=== PATIENT | male | born 1950 | race Caucasian/White ===

== ENCOUNTER → 2020-01-09 12:52 | Outpatient (BNVA) | payer MEDICARE, SELFPAY | PROVIDERS: Visit Provider Urology | DX: N40.1 Benign prostatic hyperplasia with lower urinary tract symptoms (principal); N13.8 Other obstructive and reflux uropathy; R39.11 Hesitancy of micturition; R35.1 Nocturia | CPT/HCPCS: 99202 ==

== ENCOUNTER → 2020-02-10 15:56 | Outpatient (BNVA) | payer MEDICARE, SELFPAY | PROVIDERS: Visit Provider Urology | DX: Z76.89 Persons encountering health services in other specified circumstances (principal) | CPT/HCPCS: Q3014 ==

== ENCOUNTER → 2021-02-25 13:05 | Outpatient (BNVA) | payer MEDICARE, SELFPAY | PROVIDERS: PCP Internal Medicine; Visit Provider Urology | DX: N40.1 Benign prostatic hyperplasia with lower urinary tract symptoms (principal); N13.8 Other obstructive and reflux uropathy; R39.11 Hesitancy of micturition; R35.1 Nocturia | CPT/HCPCS: 51798; 99212 ==

== ENCOUNTER → 2021-11-02 08:26 | Outpatient (BNVA) | payer MEDICARE, SELFPAY | PROVIDERS: PCP Internal Medicine; Visit Provider Urology | DX: N40.1 Benign prostatic hyperplasia with lower urinary tract symptoms (principal); R39.11 Hesitancy of micturition; R35.1 Nocturia; R39.12 Poor urinary stream; Z79.899 Other long term (current) drug therapy | CPT/HCPCS: Q3014 ==

== ENCOUNTER → 2022-07-14 14:21 | Outpatient (BNVA) | payer MEDICARE, SELFPAY | PROVIDERS: PCP Internal Medicine; Visit Provider Urology | DX: N40.1 Benign prostatic hyperplasia with lower urinary tract symptoms (principal); R39.11 Hesitancy of micturition; R35.1 Nocturia | CPT/HCPCS: 51798; 99212 ==

== ENCOUNTER 2023-01-19 14:22 | Outpatient (AMB) | payer MEDICARE, SELFPAY ==
--- NOTE | 2023-01-19 14:31 | A.OFFVIS_ITS ---
Intake Intake Visit Reasons: follow up/PVR Intake Note: Patient is Present for Follow Up Urology Medication: Finasteride, Tamsulosin Antibiotic Allergies: None Blood Thinners: None PVR: 0 Allergies No Known Allergies Allergy (Verified 01/19/23 14:32) HPI HPI Comments History of Present Illness Details Mansoor is a pleasant male. He is a patient of Dr. Marcum. He is seen for the following urologic conditions - lower urinary tract symptoms Six month follow-up bladder emptying Here for bladder emptying check PVR 0 cc Continue medications terazosin 10 mg 6 month follow-up to confirm improvement Lower urinary tract symptoms Current visit is for - further symptom evaluation of lower ur inary tract symptoms predominate obstructive symptoms. Current treatment includes - terazosin 10 mg, finasteride Prior treatments include - Prostate Symptom Score Initial Severe (20+) Bother 3 PSA 01/30 4.7 08/31 2.1 Symptoms include - incomplete emptying, weak stream, stra ining, nocturia (>2) - and are progressing Imaging - 02/28 bladder ultrasound 25 g prostate , 300 cc residual after 900 cc initial Cystoscopy - 01/01 open bladder neck, component of neurogenic bladder Associated conditions Testing at next visit will include - PVR Treatment plan - voiding surveillance PFSH Social History Alcohol intake: current Alcohol intake frequency: holidays/special occasions only Patient Tobacco Use Status: Former Tobacco user Office Procedures Post Void Residual Post Residual Void Post Void Residual (PVR): 0 60916-Hekg Void Residual by ultrasound Assessment & Plan Assessment & Plan (1) Nocturia more than twice per night: Code(s): R35.1 - Nocturia (2) BPH w urinary obs/LUTS: Code(s): N40.1 - Benign prostatic hyperplasia with lower urinary tract symptoms; N13.8 - Other obstructive and reflux uropathy Plan Six month follow-up Orders: Orders AMB Urinalysis Automated 01/19/23 Z13.9 - Encounter for screening, unspecified AMB Post Void Residual by ultrasound 01/19/23 N40.1 - Benign prostatic hyperplasia with lower urinary tract symptoms, N13.8 - Other obstructive and reflux uropathy Medications: New terazosin 10 mg PO BEDTIME 90 caps 1RF 90 days N40.1 - Benign prostatic hyperplasia with lower urinary tract symptoms, N13.8 - Other obstructive and reflux uropathy, N40.0 - Benign prostatic hyperplasia without lower urinary tract symptoms Discontinued tamsulosin Discontinued Reason: Patient Completed Course 0.4 mg PO BEDTIME 90 days 90 caps 3RF N13.8 - Other obstructive and reflux uropathy, N40.1 - Benign prostatic hyperplasia with lower urinary tract symptoms Patient Instructions: Imaging studies, laboratory and physical exam results were discussed and reviewed in detail. No major barriers to patient understanding were identified. An opportunity to ask questions regarding the treatment plan was provided. All questions were answered. The patient expressed understanding and agreement with the above treatment plan. The patient is aware they should contact our office by phone for worsening of their current condition or the appearance of new urologic symptoms. Compliance is encouraged with any medications and followup testing that is ordered. It is a privilege to participate in the urologic care of your patient. If you have any questions or concerns regarding treatment for the above conditions, or other urologic issues, please do not hesitate to contact me. The office telephone contact is [phone]. This note is constructed using voice recognition software. While every effort has been made to ensure accuracy real estate legal secretary errors may have been included. Yours sincerely, Dr Joon Fuller MD, DEBBIE [facility] - Urology Providers of Expert, Compassionate Care for the Genitourinary System Coding Level of Care Code Est Pt Level 3 (76195) Diagnoses Nocturia more than twice per night R35.1 BPH w urinary obs/LUTS N40.1; N13.8 CPT Codes Post Residual Void - PVR CPT Code: 35549-Ldlh Void Residual by ultrasound ([id number])
== END 2023-01-19 14:52 | disposition home or self-care (01) ==
PROVIDERS: Visit Provider Urology
DX: N40.1 Benign prostatic hyperplasia with lower urinary tract symptoms (principal); R35.1 Nocturia; N13.8 Other obstructive and reflux uropathy
CPT/HCPCS: 99213

== ENCOUNTER → 2023-01-19 14:22 | Outpatient (BNVA) | payer MEDICARE, SELFPAY | PROVIDERS: Visit Provider Urology | DX: N40.1 Benign prostatic hyperplasia with lower urinary tract symptoms (principal); R35.1 Nocturia; N13.8 Other obstructive and reflux uropathy | CPT/HCPCS: 51798; 99212 ==

== ENCOUNTER 2023-07-20 11:33 | Outpatient (AMB) | payer MEDICARE, SELFPAY ==
--- NOTE | 2023-07-20 11:47 | A.OFFVIS_ITS ---
Intake Visit Reasons: 6m/PVR Intake Note: Patient is Present for PVR/ Urology Med: Terazosin, Finasteride Antibiotic Allergy:none Blood Thinner: None Last PVR: 0 Todays PVR: 312 Allergies No Known Allergies Allergy (Verified 07/20/23 11:47) HPI Comments Details: Mansoor is a pleasant male. He is a patient of Dr. Marcum. He is seen for the following urologic conditions - lower urinary tract symptoms Six month follow-up bladder emptying Here for bladder emptying check High PVR Continue medications terazosin 10 mg with finasteride 6 month follow-up to confirm improvement Urgency has decreased significantly. Only waking once or twice at night. This is down from every 2 hours at initial presentation Lower urinary tract symptoms Current visit is for - further symptom evaluation of lower urinary tract symptoms predominate obstructive symptoms. Current treatment includes - terazosin 10 mg, finasteride Prior treatments include - Prostate Symptom Score Initial Severe (20+) Bother 3 PSA 01/30 4.7 08/31 2.1 Symptoms include - incomplete emptying, weak stream, straining, nocturia (>2) - and are progressing Imaging - 02/28 bladder ultrasound 25 g prostate, 300 cc residual after 900 cc initial Cystoscopy - 01/01 open bladder neck, component of neurogenic bladder Associated conditions Testing at next visit will include - PVR Treatment plan - voiding surveillance PFS Social History Alcohol intake: current Alcohol intake frequency: holidays/special occasions only Patient Tobacco Use Status: Former Tobacco user Review of Systems Const Denies chills and Denies fever(s) Card Reports no additional complaints and Denies syncope Resp Denies cough GI Denies abdominal pain and Denies heartburn Reports as per HPI and Denies change in libido Neuro Denies syncope Psych Denies change in libido Endo Denies change in libido Physical Exam Const General: cooperative, healthy appearing, comfortable and no acute distress Orientation/consciousness: patient oriented x3 HEENT Face and sinus: Yes normal facial exam Mouth: moist mucous membranes Neck Neck: Yes normal visual inspection, Yes full ROM and Yes trachea midline Chest Chest palpation & inspection: normal inspection of the chest Resp Effort & Inspection: normal respiratory effort, able to speak in complete sentences and no respiratory distress GI Inspection: Yes normal to inspection Back/Spine/Pelvis Cervical Spine: normal cervical lordosis Thoracic/Lumbar Spine: thoracic and lumbar spine normal to inspection Skin General skin exam: no rashes or lesions noted Neuro General: patient oriented x3, gait normal, tone normal and moves all extremities Extrem General: Yes normal to inspection and Yes capillary refill normal Office Procedures Post Void Residual Post Residual Void Post Void Residual (PVR): 312 33718-Gnpy Void Residual by ultrasound Assessment & Plan Assessment & Plan (1) Nocturia more than twice per night: Code(s): R35.1 - Nocturia Category: Medical (2) BPH w urinary obs/LUTS: Code(s): N40.1 - Benign prostatic hyperplasia with lower urinary tract symptoms; N13.8 - Other obstructive and reflux uropathy Category: Medical Plan Six-month follow-up Orders: Orders AMB Post Void Residual by ultrasound Today N40.1 - Benign prostatic hyperplasia with lower urinary tract symptoms, R33.9 - Retention of urine, unspecified Prostate Specific Antigen 6 Months N13.8 - Other obstructive and reflux uropathy, N40.1 - Benign prostatic hyperplasia with lower urinary tract symptoms Patient Instructions: Imaging studies, laboratory and physical exam results were discussed and reviewed in detail. No major barriers to patient understanding were identified. An opportunity to ask questions regarding the treatment plan was provided. All questions were answered. The patient expressed understanding and agreement with the above treatment plan. The patient is aware they should contact our office by phone for worsening of their current condition or the appearance of new urologic symptoms. Compliance is encouraged with any medications and followup testing that is ordered. It is a privilege to participate in the urologic care of your patient. If you have any questions or concerns regarding treatment for the above conditions, or other urologic issues, please do not hesitate to contact me. The office telephone contact is [phone]. This note is constructed using voice recognition software. While every effort has been made to ensure accuracy shipping clerk packing errors may have been included. Yours sincerely, Dr Joon Fuller MD, DEBBIE [facility] - Urology Providers of Expert, Compassionate Care for the Genitourinary System Coding Level of Care Code Est Pt Level 3 (19851) Diagnoses Nocturia more than twice per night R35.1 BPH w urinary obs/LUTS N40.1; N13.8 CPT Codes Post Residual Void - PVR CPT Code: 15190-Bynv Void Residual by ultrasound ([id number])
== END 2023-07-20 12:15 | disposition home or self-care (01) ==
PROVIDERS: PCP Internal Medicine; Visit Provider Urology
DX: N40.1 Benign prostatic hyperplasia with lower urinary tract symptoms (principal); R35.1 Nocturia; N13.8 Other obstructive and reflux uropathy
CPT/HCPCS: 99213

== ENCOUNTER → 2023-07-20 11:33 | Outpatient (BNVA) | payer MEDICARE, SELFPAY | PROVIDERS: PCP Internal Medicine; Visit Provider Urology | DX: N40.1 Benign prostatic hyperplasia with lower urinary tract symptoms (principal); N13.8 Other obstructive and reflux uropathy; R35.1 Nocturia; R33.8 Other retention of urine | CPT/HCPCS: 51798; 99212 ==

== ENCOUNTER 2024-02-22 10:06 | Outpatient (AMB) | payer MEDICARE, SELFPAY ==
--- NOTE | 2024-02-22 10:20 | MHC.OFFVIS ---
Intake Visit Reasons: 1Y PVR/PSA Free/total(psa?) Intake Note: Patient is Present for PVR/PSA Urology Med: Terazosin, Finasteride,NAPROXEN Antibiotic Allergy:none Blood Thinner: None Last PVR: 312ML'S Todays PVR: 0ML'S Tobacco Feeder Catcher Required: No Allergies No Known Allergies Allergy (Verified 02/22/24 10:21) HPI Comments Details: Mansoor is a pleasant male. He is a patient of Dr. Marcum. He is seen for the following urologic conditions - lower urinary tract symptoms Six month follow-up bladder emptying PVR resolved with medications Continue medications terazosin 10 mg with finasteride Move to yearly visit Urgency has decreased significantly. Only waking once or twice at night. This is down from every 2 hours at initial presentation Lower urinary tract symptoms Current visit is for - further symptom evaluation of lower urinary tract symptoms predominate obstructive symptoms. Current treatment includes - terazosin 10 mg, finasteride Prior treatments include - Prostate Symptom Score Initial Severe (20+) Bother 3 PSA 01/30 4.7 08/31 2.1 Symptoms include - incomplete emptying, weak stream, straining, nocturia (>2) - and are progressing Imaging - 02/28 bladder ultrasound 25 g prostate, 300 cc residual after 900 cc initial Cystoscopy - 01/01 open bladder neck, component of neurogenic bladder Associated conditions Testing at next visit will include - PVR Treatment plan - voiding surveillance [facility] Social History Alcohol intake: current Alcohol intake frequency: holidays/special occasions only Patient Tobacco Use Status: Former Tobacco user Review of Systems Const Denies chills and Denies fever(s) Card Reports no additional complaints and Denies syncope Resp Denies cough GI Denies abdominal pain and Denies heartburn Reports as per HPI and Denies change in libido Neuro Denies syncope Psych Denies change in libido Endo Denies change in libido Physical Exam Const General: cooperative, healthy appearing, comfortable and no acute distress Orientation/consciousness: patient oriented x3 HEENT Face and sinus: Yes normal facial exam Mouth: moist mucous membranes Neck Neck: Yes normal visual inspection, Yes full ROM and Yes trachea midline Chest Chest palpation & inspection: normal inspection of the chest Resp Effort & Inspection: normal respiratory effort, able to speak in complete sentences and no respiratory distress GI Inspection: Yes normal to inspection Back/Spine/Pelvis Cervical Spine: normal cervical lordosis Thoracic/Lumbar Spine: thoracic and lumbar spine normal to inspection Skin General skin exam: no rashes or lesions noted Neuro General: patient oriented x3, gait normal, tone normal and moves all extremities Extrem General: Yes normal to inspection and Yes capillary refill normal Office Procedures Post Void Residual Post Residual Void Post Void Residual (PVR): 0 38962-Lfcd Void Residual by ultrasound Results AMB Urinalysis, Automated UA Leukoctes 0 Colin/uL Last Edit by ANTELMO Rodríguez on 02/22/24 10:43 UA Nitrite Negative Last Edit by Susana Morales CCM on 02/22/24 10:43 UA Urobilinogen 0.2 mg/dL Last Edit by ANTELMO Rodríguez on 02/22/24 10:43 UA Protein 15 mg/dL Last Edit by Susana Morales CCM on 02/22/24 10:43 UA pH 6.0 Last Edit by Susana Morales [facility] on 02/22/24 10:43 UA Blood 0 Martinez/uL Last Edit by Susana Morales [facility] on 02/22/24 10:43 UA Specific [place] 1.030 Last Edit by Susana Morales CCM on 02/22/24 10:43 UA Ketone Negative Last Edit by Susana Morales CCM on 02/22/24 10:43 UA Bilirubin 0 mg/dL Last Edit by Susana Morales CCM on 02/22/24 10:43 UA Glucose 0 mg/dL Last Edit by Susana Morales [facility] on 02/22/24 10:43 Results Reviewed Results Reviewed: Laboratory Last Values Urine pH (Auto) 6.0 02/22/24 10:43 Specific [place] (Auto) 1.030 02/22/24 10:43 Urine Protein (Auto) 15 mg/dL 02/22/24 10:43 Glucose (UA)(Auto) 0 mg/dL 02/22/24 10:43 Urine Ketones (Auto) Negative 02/22/24 10:43 Urine Blood (Auto) 0 Martinez/uL 02/22/24 10:43 Urine Nitrite (Auto) Negative 02/22/24 10:43 Urine Bilirubin (Auto) 0 mg/dL 02/22/24 10:43 Urine Urobilinogen (Auto) 0.2 mg/dL 02/22/24 10:43 Leukocyte Esterase (Auto) 0 Colin/uL 02/22/24 10:43 Assessment & Plan Assessment & Plan (1) BPH w urinary obs/LUTS: Code(s): N40.1 - Benign prostatic hyperplasia with lower urinary tract symptoms; N13.8 - Other obstructive and reflux uropathy Category: Medical (2) Nocturia more than twice per night: Code(s): R35.1 - Nocturia Category: Medical (3) Incomplete emptying of bladder due to benign prostatic hyperplasia: Code(s): N40.1 - Benign prostatic hyperplasia with lower urinary tract symptoms; R33.9 - Retention of urine, unspecified Category: Medical Plan Twelve month follow-up Orders: Orders Prostate Specific Antigen 364 Days N40.1 - Benign prostatic hyperplasia with lower urinary tract symptoms, R33.9 - Retention of urine, unspecified AMB Urinalysis Automated Today Z13.9 - Encounter for screening, unspecified Medications: Refilled terazosin 10 mg PO BEDTIME 90 caps 3RF 90 days N13.8 - Other obstructive and reflux uropathy, N40.0 - Benign prostatic hyperplasia without lower urinary tract symptoms, N40.1 - Benign prostatic hyperplasia with lower urinary tract symptoms finasteride 5 mg PO DAILY 90 tabs 3RF 90 days N40.1 - Benign prostatic hyperplasia with lower urinary tract symptoms, R33.9 - Retention of urine, unspecified, R39.11 - Hesitancy of micturition Patient Instructions: Imaging studies, laboratory and physical exam results were discussed and reviewed in detail. No major barriers to patient understanding were identified. An opportunity to ask questions regarding the treatment plan was provided. All questions were answered. The patient expressed understanding and agreement with the above treatment plan. The patient is aware they should contact our office by phone for worsening of their current condition or the appearance of new urologic symptoms. Compliance is encouraged with any medications and followup testing that is ordered. It is a privilege to participate in the urologic care of your patient. If you have any questions or concerns regarding treatment for the above conditions, or other urologic issues, please do not hesitate to contact me. The office telephone contact is [phone]. This note is constructed using voice recognition software. While every effort has been made to ensure accuracy mail superintendent errors may have been included. Yours sincerely, Dr Joon Fuller MD, DEBBIE [facility] - Urology Providers of Expert, Compassionate Care for the Genitourinary System Coding Level of Care Code Est Pt Level 3 (71614) Diagnoses BPH w urinary obs/LUTS N40.1; N13.8 Nocturia more than twice per night R35.1 Incomplete emptying of bladder due to benign prostatic hyperplasia N40.1; R33.9 CPT Codes Post Residual Void - PVR CPT Code: 31515-Urss Void Residual by ultrasound ([id number])
== END 2024-02-22 10:54 | disposition home or self-care (01) ==
PROVIDERS: PCP Internal Medicine; Visit Provider Urology
DX: N40.1 Benign prostatic hyperplasia with lower urinary tract symptoms (principal); N13.8 Other obstructive and reflux uropathy; R35.1 Nocturia; R33.9 Retention of urine, unspecified; Z13.9 Encounter for screening, unspecified
CPT/HCPCS: 99213

== ENCOUNTER → 2024-02-22 10:06 | Outpatient (BNVA) | payer MEDICARE, SELFPAY | PROVIDERS: PCP Internal Medicine; Visit Provider Urology | DX: N40.1 Benign prostatic hyperplasia with lower urinary tract symptoms (principal); N13.8 Other obstructive and reflux uropathy; R35.1 Nocturia; R33.9 Retention of urine, unspecified | CPT/HCPCS: 51798; 81003; 99212 ==

== ENCOUNTER 2025-02-09 14:32 | Outpatient (REF) | payer MEDICARE, SELFPAY ==
[2025-02-09 16:05] LABS: Prostate Specific Antigen 2.58 ng/mL (<0.05-4.0)
--- OUTSIDE RECORDS SUMMARY | 2025-02-09 17:52 | XMS_ITS | Encounter Summary ---
Author Organization [facility] Address [address] [place] [address] Care Team Providers Care Director Of Staff Development Name Role Phone Kee Logan MD Primary Care Provider Encounter Details Date Type Department Care Team (Late Contact Info) Description 02/02/2025 Results Follow-Up Internal Medicine - [place] [address] [phone] Kee Logan MD [address] [address] Social History Tobacco Use Types Packs/Day Years Used Date Smoking Tobacco: Never Smokeless Tobacco: Never Alcohol Use Standard Drinks/Week Comments Yes 0 (1 standard drink = 0.6 oz pur e alcohol) Sex and Gender Information Value Date Recorded Sex Assigned at Not on file Legal Sex Male 11:21 PM EST Gender Identity Not on file Sexual Orientation Not on file documented as of this encounter Plan of Treatment Upcoming Encounters Date Type Department Care Team (Late st Contact Info) Description 07/27/2025 1:15 PM EDT Office Visit Internal Medicine - [place] [address] [phone] Kee Logan MD [address] [id number] documented as of this encounter Visit Diagnoses Not on filedocumented in this encounter Additional Health Concerns Assessment Noted Time PHQ-9 Depression Total Score: 0 01/22/20 25 5:29 PM EST A fall risk assessment has been complete d for the patient 07/21/2024 3:30 PM EDT documented as of this encounter Care Teams Director Of Staff Development Relationship Specialty Start Date End Date Kee Logan MD [address] [id number] PCP - General 05/04/22 documented as of this encounter
--- OUTSIDE RECORDS SUMMARY | 2025-02-09 17:52 | XMS_ITS | Clinical Summary ---
Author Organization [facility] Address [address] [place] [address] Care Team Providers Care Voice Professor Name Role Phone Unavailable Primary Care Provider Unavailabl e Allergies No known active allergies Medications * This document contains information received from the source organization and may not represent a complete record from that organization. No known medications Social History Tobacco Use Types Packs/Day Years Used Date Smoking Tobacco: Never Smokeless Tobacco: Never Alcohol Use Standard Drinks/Week Comments Not Asked 0 (1 standard drink = 0.6 oz pur e alcohol) Sex and Gender Information Value Date Recorded Sex Assigned at Not on file Legal Sex Male 1:48 AM EDT Gender Identity Not on file Sexual Orientation Not on file Last Filed Vital Signs Vital Sign Reading Time Taken Comments Blood Pressure 148/66 01/26/2011 2:42 PM EST Pulse 80 01/26/2011 2:42 PM EST Temperature - - Respiratory Rate - - Oxygen Saturation - - Inhaled Oxygen Concentration - - Weight 87.5 kg (193 lb) 01/26/2011 2:42 PM EST Height 177.8 cm (5' 10 ) 01/26/2011 2:42 PM EST Body Mass Index 27.69 01/26/2011 2:42 PM EST Plan of Treatment Health Maintenance Due Date Last Done Comments Hepatitis C Screening 1950 DTaP/Tdap/Td (1 - Tdap) 1970 Pneumococcal 50+ years (1 of 1 - PCV) 2002 Zoster (Shingrix) (1 of 2) 2002 COVID-19 Vaccine ( - 2024-2 6 season) 2024 Influenza (#1) 2024 RSV (1 - 1-dose 75+ series) 2027 Abdominal Aorta Imaging Discontinued HPV Vaccine (No Doses Required) Completed Hep A Aged Out No longer eligi ble based on patient's age to complete this topic Hep B Aged Out No longer eligi ble based on patient's age to complete this topic Hib Aged Out No longer eligi ble based on patient's age to complete this topic Meningococcal ACWY Aged Out No longer eligible based on patient's age to complete this topic Zoster (Zostavax) Discontinued
--- OUTSIDE RECORDS SUMMARY | 2025-02-09 17:52 | XMS_ITS | Clinical Summary ---
Author Organization 175 [facility] Address [address] [place] [address] Phone Care Team Providers Care Electrical Logging Engineer Name Role Phone Kee Logan MD Primary Care Provider [phone] Allergies No known active allergies Medications finasteride (PROSCAR) 5 mg tablet Take 1 tablet (5 mg total) by mouth 1 (one) time each day. 05/19/2023 Active terazosin (HYTRIN) 10 mg capsule Take 1 capsule (10 mg total) by mouth 1 (one) time each day. 05/19/2023 Active traZODone (DESYREL) 100 mg tablet Take 1 tablet (100 mg total) by mouth at bedtime as needed for sleep. 30 tablet 5 07/21/2024 07/22/19 26 Active sertraline (ZOLOFT) 50 mg tablet Take 1 tablet (50 mg total) by mouth 1 (one) time each day. 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 Overview (02/21/2024): Biopsied 2008 - resolved with steroid cream Hyperlipidemia 02/14/2005 Encounters Date Type Department Care Team Description 02/02/2025 9:35 AM EST Lab Draw Station - [address] [facility] [address] [place] [phone] Hypercholesterolemia ; Benign prostatic hyperplasia, unspecified whether lower urinary tract symptoms present; Current mild episode of major depressive disorder, unspecified whether recurrent ([facility] V24) 02/02/2025 Results Follow-Up Internal Medicine - [place] [address] [facility] [address] [place] [phone] Kee Logan MD 01/26/2025 11:00 AM EST Office Visit Internal Medicine - [place] [address] [facility] [address] [place] [phone] Kee Logan MD Current mild episode of major depressive disorder, unspecified whether recurrent ([facility] V24) (Primary Dx); Hypercholesterolemia ; Benign prostatic hyperplasia, unspecified whether lower urinary tract symptoms present from Last 3 Months Immunizations Immunization Administration Dates Next Due Influenza Quadravalent, MDCK , 0.5ml, preservative free (Flucelvax) 6mo and older 03/27/2018 Influenza trivalent, 0.5mL (Fluad) 65yo and olde r 01/15/2020,01/03/2019 Td Tetanus diptheria (Tdvax) 7yo and older 09/09,03/13/1995 Tdap Tetanus diptheria acell ular pertussis (Boostrix; Adacel) 7yo and older 01/01/2009 Medical History Medical History Date Comments Pure hypercholesterolemia DX:Pur e hypercholesterolemia Nummular eczema 09/23/2010 DX:Nummular [place] Family History Medical History Relation Name Comments Squamous cell carcinoma Brother Melanoma Father Basal cell carcinoma Mother Relation Name Status Comments Brother Father Mother Social History Tobacco Use Types Packs/Day Years Used Date Smoking Tobacco: Never Smokeless Tobacco: Never Alcohol Use Standard Drinks/Week Comments Yes 0 (1 standard drink = 0.6 oz pur e alcohol) Sex and Gender Information Value Date Recorded Sex Assigned at Not on file Legal Sex Male 11:21 PM EST Gender Identity Not on file Sexual Orientation Not on file Obstetrics History Last Filed Vital Signs Vital Sign Reading Time Taken Comments Blood Pressure 114/71 01/26/2025 10:54 AM EST Pulse 103 01/26/2025 10:54 AM EST Temperature 36.9 C (98.5 F) 01/26/2025 10:54 AM EST Respiratory Rate - - Oxygen Saturation 98% 01/26/2025 10:54 AM EST Inhaled Oxygen Concentration - - Weight 86.7 kg (191 lb 3.2 oz) 01/26/2025 10:54 AM EST Height 180.3 cm (5' 11 ) 01/26/2025 10:54 AM EST Body Mass Index 26.67 01/26/2025 10:54 AM EST Plan of Treatment Upcoming Encounters Date Type Department Care Team (Late st Contact Info) Description 07/27/2025 1:15 PM EDT Office Visit Internal Medicine - [place] [address] [facility] [address] [place] [phone] Kee Logan MD [address] [facility] [address] [place] [address] Health Maintenance Due Date Last Done Comments Colorectal Cancer Screening: Colonoscopy 1950 Pneumococcal Vaccine: 50+ Years (1 of 1 - PCV) 2002 Zoster Vaccines (1 of 2) 2002 Abdominal Aortic Aneurysm (AAA) Screen 02/18/2022 Social Influencers of Health Screening 02/18/2022 COVID-19 Vaccine (3 - 2024-2 6 season) 2024 04/01/2021, 07/19/2020 Influenza Vaccine (#1) 2024 , 01/03/2019, 03/27/2018 Falls Risk Assessment 07/21/2025 07/21/2024 , 12/21/2023 Medicare Annual Wellness Visit 07/21/2025 07/21/2024 RSV Immunization Adult Patients (1 - 1-dose 75+ series) 2027 Cholesterol Screening (Lipid Panel) 02/02/2030 02/02/2025, 12/21/2023, 12/21/2023 DTaP,Tdap,and Td Vaccines (4 - Td or Tdap) 09/10/2031 09/09/2021, 01/01/2009, 03/13/1995 Hepatitis C Screening Completed 01/14/2016 Depression Screening Completed 01/21/2025, 12/21/2023 HIB Vaccines Aged Out No longer eligi ble based on patient's age to complete this topic HPV Vaccines Aged Out No longer eligi ble based on patient's age to complete this topic Hepatitis A Vaccines Aged Out No long er eligible based on patient's age to complete this topic Hepatitis B Vaccines Aged Out No long er eligible based on patient's age to complete this topic IPV Vaccines Aged Out No longer eligi ble based on patient's age to complete this topic MMR Vaccines Aged Out No longer eligi ble based on patient's age to complete this topic Meningococcal ACWY Vaccine Aged Out N o longer eligible based on patient's age to complete this topic Meningococcal B Vaccine Aged Out No l onger eligible based on patient's age to complete this topic RSV Immunization Patients Under 20 months Aged Out No longer eligible b ased on patient's age to complete this topic Varicella Vaccines Aged Out No longer eligible based on patient's age to complete this topic Procedures Procedure Name Priority Date/Time Associated Diagnosis Comments CBC WITH AUTO DIFFERENTIAL Routine 02/02/2025 9:50 AM EST Hypercholesterolemi a Benign prostatic hyperplasia, unspecified whether lower urinary tract symptoms present Current mild episode of major depressive disorder, unspecified whether recurrent (CMS/HCC V24) CBC AND DIFFERENTIAL Routine 02/02/2025 9:50 AM EST Hypercholesterolemi a Benign prostatic hyperplasia, unspecified whether lower urinary tract symptoms present Current mild episode of major depressive disorder, unspecified whether recurrent (CMS/HCC V24) COMPREHENSIVE METABOLIC PANEL Routine 02/02/2025 9:50 AM EST Hypercholesterolemi a Benign prostatic hyperplasia, unspecified whether lower urinary tract symptoms present Current mild episode of major depressive disorder, unspecified whether recurrent (CMS/HCC V24) LIPID PANEL WITH REFLEX TO DIRECT LDL Routine 02/02/2025 9:50 AM EST Hypercholesterolemi a Benign prostatic hyperplasia, unspecified whether lower urinary tract symptoms present Current mild episode of major depressive disorder, unspecified whether recurrent (CMS/HCC V24) THYROID STIMULATING HORMONE Routine 02/02/2025 9:50 AM EST Hypercholesterolemi a Benign prostatic hyperplasia, unspecified whether lower urinary tract symptoms present Current mild episode of major depressive disorder, unspecified whether recurrent (CMS/HCC V24) DEPRESSION SCREENING Routine 12/21/2023 FALLS RISK ASSESSMENT Routine 12/21/2023 HEPATITIS C SCREENING Routine 01/14/2016 from Last 3 Months or Most Recently Relevant to Health Maintenance Results * Lipid panel with reflex to direct LDL (02/02/2025 9:50 AM EST) Cholesterol 153 0 - 200 mg/dL 02/02/2025 4:23 PM [facility] Triglycerides 118 0 - 150 mg/dL 02/02/2025 4:23 PM [facility] HDL 51 >=40 mg/dL 02/02/2025 4:23 PM [facility] LDL Calculated 78 0 - 100 mg/dL 02/02/2025 4:23 PM [facility] Comment:Estimated LDL Calcul ated using equation: Total cholesterol - HDL cholesterol - (Triglycerides/5) VLDL Cholesterol Omar 23.6 mg/dL 02/02/2025 4:23 PM [facility] Non HDL Chol. (LDL+VLDL) 102 <145 mg/dL 02/02/2025 4:23 PM [facility] Chol/HDL Ratio 3.0 0.0 - 4.4 02/02/2025 4:23 PM [facility] Blood Venous blood specimen / Unknown Venipuncture / Unknown 02/02/2025 9:50 AM EST 02/02/2025 9:50 AM EST us Kee Logan MD LAB BLOOD ORDERABLES Final Resul t [facility] [address] [place] [address], * (ABNORMAL) CBC auto differential (02/02/2025 9:50 AM EST) WBC 6.1 4.8 - 10.8 K/mcL LAB HEMETOLOGY METHOD 02/02/2025 2:28 PM EST [facility] RBC 4.60 4.50 - 5.50 M/mcL LAB HEMETOLOGY METHOD 02/02/2025 2:28 PM EST [facility] Hemoglobin 14.9 13.5 - 17.5 g/dL LAB HEMETOLOGY METHOD 02/02/2025 2:28 PM [facility] Hematocrit 45.6 42.0 - 54.0 % LAB HEMETOLOGY METHOD 02/02/2025 2:28 PM EST [facility] MCV 99.1(H) 79.0 - 98.0 FL LAB HEMETOLOGY METHOD 02/02/2025 2:28 PM EST [facility] MCH 32.4(H) 27.0 - 32.0 pcg LAB HEMETOLOGY METHOD 02/02/2025 2:28 PM [facility] MCHC 32.7 32.0 - 37.0 g/dL LAB HEMETOLOGY METHOD 02/02/2025 2:28 PM EST [facility] RDW 12.5 11.0 - 15.0 % LAB HEMETOLOGY METHOD 02/02/2025 2:28 PM [facility] Platelets 173 130 - 400 K/mcL LAB HEMETOLOGY METHOD 02/02/2025 2:28 PM [facility] MPV 11.3(H) 7.0 - 11.0 FL LAB HEMETOLOGY METHOD 02/02/2025 2:28 PM [facility] NRBC 0.0 <1.0 % LAB HEMETOLOGY METHOD 02/02/2025 2:28 PM [facility] NRBC Absolute 0.00 <0.10 K/mcL LAB HEMETOLOGY METHOD 02/02/2025 2:28 PM [facility] Neutrophils Relative 57.1 % LAB HEMETOLOGY METHOD 02/02/2025 2:28 PM [facility] Lymphocytes Relative 21.1 % LAB HEMETOLOGY METHOD 02/02/2025 2:28 PM [facility] Monocytes Relative 15.5 % LAB HEMETOLOGY METHOD 02/02/2025 2:28 PM [facility] Eosinophils Relative 4.8 % LAB HEMETOLOGY METHOD 02/02/2025 2:28 PM [facility] Basophils Relative 1.3 % LAB HEMETOLOGY METHOD 02/02/2025 2:28 PM [facility] Immature Granulocytes Relative 0.2 % LAB HEMETOLOGY METHOD 02/02/2025 2:28 PM [facility] Neutrophils Absolute 3.48 1.50 - 7.00 K/mcL LAB HEMETOLOGY METHOD 02/02/2025 2:28 PM [facility] Lymphocytes Absolute 1.28 1.00 - 5.00 K/mcL LAB HEMETOLOGY METHOD 02/02/2025 2:28 PM [facility] Monocytes Absolute 0.94 0.20 - 1.00 K/mcL LAB HEMETOLOGY METHOD 02/02/2025 2:28 PM [facility] Eosinophils Absolute 0.29 0.00 - 0.50 K/mcL LAB HEMETOLOGY METHOD 02/02/2025 2:28 PM [facility] Basophils Absolute 0.08 0.00 - 0.20 K/mcL LAB HEMETOLOGY METHOD 02/02/2025 2:28 PM [facility] Immature Granulocytes Absolute 0.01 0.00 - 0.03 K/mcL LAB HEMETOLOGY METHOD 02/02/2025 2:28 PM EST [facility] Blood Venous blood specimen / Unknown Venipuncture / Unknown 02/02/2025 9:50 AM EST 02/02/2025 9:50 AM EST us Kee Logan MD LAB BLOOD ORDERABLES Final Resul t Performing Organization Address [facility]/ZIP Co de Phone Number [facility] [address] [place] [address], [place] [phone] * Thyroid stimulating hormone (02/02/2025 9:50 AM EST) Pathologist [facility] TSH 1.77 0.40 - 4.00 mcIU/mL 02/02/2025 4:19 PM EST [facility] Blood Venous blood specimen / Unknown Venipuncture / Unknown 02/02/2025 9:50 AM EST 02/02/2025 9:50 AM EST us Kee Logan MD LAB BLOOD ORDERABLES Final Resul t Performing Organization Address [facility] Co de Phone Number [facility] [address] [place] [address], [place] [phone] * (ABNORMAL) Comprehensive metabolic panel (02/02/2025 9:50 AM EST) Pathologist [facility] Sodium 142 133 - 145 mmol/L 02/02/2025 4:23 PM EST [facility] Potassium 4.5 3.5 - 5.5 mmol/L 02/02/2025 4:23 PM EST [facility] Chloride 104 96 - 110 mmol/L 02/02/2025 4:23 PM EST [facility] CO2 28 21 - 32 mmol/L 02/02/2025 4:23 PM EST [facility] Anion Gap 10 3 - 11 02/02/2025 4:23 PM [facility] Glucose 106(H) 70 - 100 mg/dL 02/02/2025 4:23 PM [facility] BUN 19 5 - 25 mg/dL 02/02/2025 4:23 PM [facility] Creatinine 1.11 0.70 - 1.30 mg/dL 02/02/2025 4:23 PM [facility] eGFR 71 >=60 mL/min/1. 73m2 02/02/2025 4:23 PM [facility] Comment:Calculation based on the Chronic Kidney Disease Epidemiology Collaboration (CKD-EPI) equation refit without adjustment for race. BUN/Creatinine Ratio 17.1 02/02/2025 4:23 PM [facility] Calcium 8.1(L) 8.5 - 10.5 mg/dL 02/02/2025 4:23 PM [facility] AST (SGOT) 25 10 - 42 unit/L 02/02/2025 4:23 PM [facility] ALT (SGPT) 21 10 - 60 unit/L 02/02/2025 4:23 PM [facility] Alkaline Phosphatase 105 42 - 121 unit/L 02/02/2025 4:23 PM [facility] Total Protein 6.7 6.0 - 8.0 g/dL 02/02/2025 4:23 PM [facility] Albumin 3.8 3.2 - 5.0 g/dL 02/02/2025 4:23 PM [facility] Total Bilirubin 0.6 0.0 - 1.4 mg/dL 02/02/2025 4:23 PM [facility] Blood Venous blood specimen / Unknown Venipuncture / Unknown 02/02/2025 9:50 AM EST 02/02/2025 9:50 AM EST us Kee Logan MD LAB BLOOD ORDERABLES Final Resul t [facility] ([facility]) [facility] [address] [place] [address], [place] [phone] * Falls Risk Assessment (12/21/2023) Falls Risk Assessment abstracted Historical Provider HEALTH MAINTENANCE Final Result * Depression Screening (12/21/2023) Depression Screening abstracted Historical Provider HEALTH MAINTENANCE Final Result * Hepatitis C Screening (01/14/2016) Hepatitis C Screening abstracted Historical Provider HEALTH MAINTENANCE Final Result from Last 3 Months or Most Recently Relevant to Health Maintenance Insurance MEDICARE [facility] Care Teams Electrical Logging Engineer Relationship Specialty Start Date End Date Kee Logan MD [address] [address] PCP - General 05/04/22
== END 2025-02-09 14:33 | disposition home or self-care (01) ==
LOC: HO.LAB 14:32
PROVIDERS: PCP Internal Medicine; Visit Provider Urology
DX: N40.0 Benign prostatic hyperplasia without lower urinary tract symptoms (principal); R33.9 Retention of urine, unspecified; Z12.5 Encounter for screening for malignant neoplasm of prostate
CPT/HCPCS: 36415; 84153

== ENCOUNTER 2025-02-27 13:25 | Outpatient (AMB) | payer MEDICARE, SELFPAY ==
--- NOTE | 2025-02-27 13:39 | MHC.OFFVIS ---
Intake Visit Reasons: 1Y PSA/PVR(set) Intake Note: Reason for Visit: PSA/PVR Follow Up Urology Meds: Terazosin, Finasteride Blood Thinners: None Labs: PSA- 2.58(02/09/2025) Imaging: None Last PVR: 0ml PVR: 256ml Tube Turner Required: No Accompanied by: Self / Same As Patient Allergies No Known Allergies Allergy (Verified 02/27/25 13:41) HPI Comments Details: Mansoor is a pleasant male. He is a patient of Dr. Marcum. He is seen for the following urologic conditions - lower urinary tract symptoms Yearly follow-up Higher PVR but did not fully empty Encouraged double voiding Discussed voiding parameters Continue medications terazosin 10 mg with finasteride Urgency has decreased significantly. Only waking once or twice at night. This is down from every 2 hours at initial presentation Lower urinary tract symptoms Current visit is for - further symptom evaluation of lower urinary tract symptoms predominate obstructive symptoms. Current treatment includes - terazosin 10 mg, finasteride Prior treatments include - Prostate Symptom Score Initial Severe (20+) Bother 3 PSA 01/30 4.7 08/31 2.1, 03/05 2.6 Symptoms include - incomplete emptying, weak stream, straining, nocturia (>2) - and are progressing Imaging - 02/28 bladder ultrasound 25 g prostate, 300 cc residual after 900 cc initial Cystoscopy - 01/01 open bladder neck, component of neurogenic bladder Associated conditions Testing at next visit will include - PVR Treatment plan - voiding surveillance PFSH Social History Alcohol intake: current Alcohol intake frequency: holidays/special occasions only Patient Tobacco Use Status: Former Tobacco user Review of Systems Const Denies chills and Denies fever(s) Card Reports no additional complaints and Denies syncope Resp Denies cough GI Denies abdominal pain and Denies heartburn Reports as per HPI and Denies change in libido Neuro Denies syncope Psych Denies change in libido Endo Denies change in libido Physical Exam Const General: cooperative, healthy appearing, comfortable and no acute distress Orientation/consciousness: patient oriented x3 HEENT Face and sinus: Yes normal facial exam Mouth: moist mucous membranes Neck Neck: Yes normal visual inspection, Yes full ROM and Yes trachea midline Chest Chest palpation & inspection: normal inspection of the chest Resp Effort & Inspection: normal respiratory effort, able to speak in complete sentences and no respiratory distress GI Inspection: Yes normal to inspection Back/Spine/Pelvis Cervical Spine: normal cervical lordosis Thoracic/Lumbar Spine: thoracic and lumbar spine normal to inspection Skin General skin exam: no rashes or lesions noted Neuro General: patient oriented x3, gait normal, tone normal and moves all extremities Extrem General: Yes normal to inspection and Yes capillary refill normal Office Procedures Post Void Residual Post Residual Void Post Void Residual (PVR): [id number] Void Residual by ultrasound Assessment & Plan Assessment & Plan (1) BPH w urinary obs/LUTS: Code(s): N40.1 - Benign prostatic hyperplasia with lower urinary tract symptoms; N13.8 - Other obstructive and reflux uropathy Category: Medical (2) Nocturia more than twice per night: Code(s): R35.1 - Nocturia Category: Medical Plan Twelve month follow-up Orders: Orders AMB Post Void Residual by ultrasound Today N13.8 - Other obstructive and reflux uropathy, N40.1 - Benign prostatic hyperplasia with lower urinary tract symptoms Prostate Specific Antigen 12 Months N40.1 - Benign prostatic hyperplasia with lower urinary tract symptoms, R33.9 - Retention of urine, unspecified Patient Instructions: This note is constructed using voice recognition software. While every effort has been made to ensure accuracy advertising agent errors may have been included. Imaging studies, laboratory and physical exam results were discussed and reviewed in detail. No major barriers to patient understanding were identified. An opportunity to ask questions regarding the treatment plan was provided. All questions were answered. The patient expressed understanding and agreement with the above treatment plan. The patient is aware they should contact our office by phone for worsening of their current condition or the appearance of new urologic symptoms. Compliance is encouraged with any medications and followup testing that is ordered. It is a privilege to participate in the urologic care of your patient. If you have any questions or concerns regarding treatment for the above conditions, or other urologic issues, please do not hesitate to contact me. The office telephone contact is [phone]. Sincerely, Dr Joon Fuller MD, DEBBIE [facility] - Urology Compassionate Specialist Care for the Genitourinary System Coding Level of Care Code Est Pt Level 4 (37477) Add On Problem Visit Only Diagnoses BPH w urinary obs/LUTS N40.1; N13.8 Nocturia more than twice per night R35.1 CPT Codes Post Residual Void - PVR CPT Code: 87246-Pifz Void Residual by ultrasound ([id number])
--- OUTSIDE RECORDS SUMMARY | 2025-02-27 15:09 | XMS_ITS | Encounter Summary ---
Author Organization [facility] Address [address] [place] [address] Care Team Providers Care Dispatcher Ship Pilot Name Role Phone Kee Logan MD Primary Care Provider [phone] Encounter Details Date Type Department Care Team (Late Contact Info) Description 02/02/2025 Results Follow-Up Internal Medicine - [place] [address] [phone] Kee Logan MD [address] [address] Social History Tobacco Use Types Packs/Day Years [...] PM EDT Office Visit Internal Medicine - [place] [address] [phone] Kee Logan MD [address] [address] documented as of this encounter Visit Diagnoses Not on filedocumented in this encounter Additional Health Concerns Assessment Noted Time PHQ-9 Depression Total Score: 0 01/22/20 25 5:29 PM EST A fall risk assessment has been complete d for the patient 07/21/2024 3:30 PM EDT documented as of this encounter Care Teams Dispatcher Ship Pilot Relationship Specialty Start Date End Date Kee Logan MD [address] [address] PCP - General 05/04/22 documented as of this encounter
--- OUTSIDE RECORDS SUMMARY | 2025-02-27 15:09 | XMS_ITS | Clinical Summary ---
Author Organization [facility] Address [address] [place] [address] Care Team Providers Care Dumpcart Driver Name Role Phone Unavailable Primary Care Provider [...]
--- OUTSIDE RECORDS SUMMARY | 2025-02-27 15:09 | XMS_ITS | Clinical Summary ---
Author Organization 175 [facility] Address [address] [place] [address] Phone Care Team Providers Care Radar Scientist Name Role Phone Kee Logan MD Primary Care Provider [phone] Allergies No known active allergies Medications finasteride [...] Draw Station - [address] [facility] [address] [place] [phone] Hypercholesterolemia ; Benign prostatic hyperplasia, unspecified whether lower urinary tract symptoms present; Current mild episode of major depressive disorder, unspecified whether recurrent ([facility] V24) 02/02/2025 Results Follow-Up Internal Medicine - [place] [address] [facility] [address] [place] [phone] Kee Logan MD 01/26/2025 11:00 AM EST Office Visit Internal Medicine - [place] [address] [facility] [address] [place] [phone] Kee Logan MD Current mild episode of major depressive disorder, unspecified whether recurrent ([facility] V24) (Primary Dx); Hypercholesterolemia ; Benign prostatic [...] PM EDT Office Visit Internal Medicine - [place] [address] [facility] [address] [place] [phone] Kee Logan MD [address] [facility] [address] [place] [address] Health Maintenance Due Date Last Done Comments [...] Procedure Name Priority Date/Time Associated Diagnosis Comments EXTERNAL CLINICAL LAB 02/09/2025 CBC WITH AUTO DIFFERENTIAL Routine 02/02/2025 9:50 [...] Recently Relevant to Health Maintenance Results * External clinical lab (02/09/2025) us Provider [facility] LAB BLOOD ORDERABLES Fin al Result * Lipid panel with reflex to direct [...] MD LAB BLOOD ORDERABLES Final Resul t [facility] [address] [place] [address], [place] [phone] * (ABNORMAL) CBC auto differential (02/02/2025 9:50 AM EST) [facility] WBC 6.1 4.8 - 10.8 K/mcL LAB HEMETOLOGY METHOD 02/02/2025 2:28 PM [facility] RBC 4.60 4.50 - 5.50 M/mcL LAB HEMETOLOGY METHOD 02/02/2025 2:28 PM [facility] Hemoglobin 14.9 13.5 - 17.5 g/dL LAB HEMETOLOGY METHOD 02/02/2025 2:28 PM [facility] Hematocrit 45.6 42.0 - 54.0 % LAB HEMETOLOGY METHOD 02/02/2025 2:28 PM [facility] MCV 99.1(H) 79.0 - 98.0 FL LAB HEMETOLOGY METHOD 02/02/2025 2:28 PM [facility] MCH 32.4(H) 27.0 - 32.0 pcg LAB HEMETOLOGY METHOD 02/02/2025 2:28 PM [facility] MCHC 32.7 32.0 - 37.0 g/dL LAB HEMETOLOGY METHOD 02/02/2025 2:28 PM [facility] RDW 12.5 11.0 - 15.0 % [...] LAB HEMETOLOGY METHOD 02/02/2025 2:28 PM EST [facility] Basophils Absolute 0.08 0.00 - 0.20 K/[facility] HEMETOLOGY METHOD 02/02/2025 2:28 PM EST [facility] Immature Granulocytes Absolute 0.01 0.00 - 0.03 K/[facility] HEMETOLOGY METHOD 02/02/2025 2:28 PM [facility] Blood Venous blood specimen / Unknown Venipuncture / Unknown 02/02/2025 9:50 AM EST 02/02/2025 9:50 AM EST us Kee Logan MD LAB BLOOD ORDERABLES Final Resul t Performing Organization Address City/[facility]/ZIP Co de Phone Number [facility] [address] [place] [address], [place] [phone] * Thyroid stimulating hormone (02/02/2025 9:50 AM EST) TSH 1.77 0.40 - 4.00 mcIU/mL 02/02/2025 4:19 PM [facility] Blood Venous blood specimen / Unknown Venipuncture / Unknown 02/02/2025 9:50 AM EST 02/02/2025 9:50 AM EST us Kee Logan MD LAB BLOOD ORDERABLES Final Resul t [facility] [address] [place] [address], [place] [phone] * (ABNORMAL) Comprehensive metabolic panel (02/02/2025 9:50 AM EST) Sodium 142 133 - 145 mmol/L 02/02/2025 4:23 PM [facility] Potassium 4.5 3.5 - 5.5 mmol/L 02/02/2025 4:23 PM [facility] Chloride 104 96 - 110 mmol/L 02/02/2025 4:23 PM [facility] CO2 28 21 - 32 mmol/L 02/02/2025 4:23 PM [facility] Anion Gap 10 3 - 11 [...] 0.0 - 1.4 mg/dL 02/02/2025 4:23 PM EST [facility] Blood Venous blood specimen / Unknown Venipuncture / Unknown 02/02/2025 9:50 AM EST 02/02/2025 9:50 AM EST Kee Logan MD LAB BLOOD ORDERABLES Final Resul t [facility] [address] [place] [address], [place] [phone] * Falls Risk Assessment (12/21/2023) Falls Risk Assessment abstracted Historical Provider HEALTH MAINTENANCE Final Result * Depression Screening (12/21/2023) Depression Screening abstracted Historical Provider HEALTH MAINTENANCE Final Result * Hepatitis C Screening (01/14/2016) Hepatitis C Screening abstracted Historical Provider HEALTH MAINTENANCE Final Result from Last 3 Months or Most Recently Relevant to Health Maintenance Insurance [place] [id number] MEDICARE [facility] Care Teams Radar Scientist Relationship Specialty Start Date End Date Kee Logan MD [address] [place] [phone] PCP - General 05/04/22
--- OUTSIDE RECORDS SUMMARY | 2025-02-27 15:09 | XMS_ITS ---
Author Name [facility] Organization Unknown Care Team Organization Name Specialty Phone Email Start Date End Da te [facility] AC 10/29/2024 [facility] PIPER CHAVEZ Primary Care 08/18/2022 10/29/19 [facility] FABRIZIO Primary Care 01/17/2022 10/29/2023
== END 2025-02-27 14:29 | disposition home or self-care (01) ==
LOC: HO.HUSH 13:25
PROVIDERS: PCP Internal Medicine; Visit Provider Urology
DX: N40.1 Benign prostatic hyperplasia with lower urinary tract symptoms (principal); N13.8 Other obstructive and reflux uropathy; R35.1 Nocturia
CPT/HCPCS: 99214; G2211

== ENCOUNTER → 2025-02-27 13:25 | Outpatient (BNVA) | payer MEDICARE, SELFPAY | PROVIDERS: PCP Internal Medicine; Visit Provider Urology | DX: N40.1 Benign prostatic hyperplasia with lower urinary tract symptoms (principal); R35.1 Nocturia; N13.8 Other obstructive and reflux uropathy; R33.9 Retention of urine, unspecified | CPT/HCPCS: 51798; 99212 ==